=== PATIENT | female | born 1960 | race Caucasian/White ===

== ENCOUNTER 2017-11-08 06:58 | Outpatient (CLI) | payer OTHER | END 2017-11-08 06:59 | disposition home or self-care (01) | LOC: BICMRI 06:58 | PROVIDERS: ATTEND Orthopaedic Surgery | DX: M50.120 Mid-cervical disc disorder, unspecified level (principal); M47.892 Other spondylosis, cervical region; Z98.1 Arthrodesis status | CPT/HCPCS: 72141 ==

== ENCOUNTER 2018-12-06 05:31 | Day surgery (SDC) | payer OTHER ==
[2018-12-01 10:56] VITALS: BMI 30.4
--- NOTE | 2018-12-05 13:22 | HP ---
HISTORY OF PRESENT ILLNESS: Ms. Huitron is a pleasant 58-year-old woman, who is here today for evaluation of a large C7 disk herniation, which she had back in 2016. Ultimately, she had a new MRI performed by Radiology in October of 2017, which reveals resolution of that particular disk, but she has had persistent [id number]-[id number] bilateral neuroforaminal narrowing at C5-C6 and does have matching C6 pains and numbness, but most significantly in her hands. Some of this has been diagnosed as carpal tunnel syndrome, but she does have the active radicular symptoms in her arms as well. She does have history of previous C6-C7 ACDF, noted on her MRI which reveals stable. PAST MEDICAL HISTORY: Significant for hyperlipidemia, anxiety, depression, hypothyroidism, and COPD. CURRENT MEDICATIONS: 1. Symbicort. 2. Albuterol. 3. Trazodone. 4. Buspirone. 5. Levothyroxine. 6. Melatonin. 7. Sertraline. 8. Simvastatin. PAST SURGICAL HISTORY: ACDF, breast lumpectomy, hysterectomy, and cholecystectomy. ALLERGIES: MORPHINE AND DEMEROL. PHYSICAL EXAMINATION: The patient is alert and oriented x3. Cervical range of motion is somewhat limited in the rotational left and right movements. Her upper extremity motor exam is essentially normal with some minor sensory disturbance of the first through third digits of the bilateral hands. ASSESSMENT: Cervical radiculopathy. PLAN: Dr. Sullivan met with the patient, reviewed imaging, and advocated for revision C5-C6 anterior cervical discectomy and fusion. He explained to the patient the risks, benefits, and alternatives of the procedure. The patient expressed understanding and elected to go forward with surgery as discussed. I do believe that the patient is mentally competent and capable of making medical decisions for herself. We will move forward with surgery as planned. Job ID: [id number]
[2018-12-06] MEDS ORDERED: CEFAZOLIN 2 GM/50 ML BAG ONE ×2 (06:33→11:29)
[2018-12-06 06:43] LABS: #Eosinphils 0.3 thou/uL (0.0-0.7); #Monocytes 0.5 thou/uL (0.11-0.59); #Neutrophils 2.9 thou/uL (1.40-6.50); %Basophils 0.6 % (0.0-1.0); %Eosinophils 5.1 % (0.0-10.0); %Lymphocytes 35.7 % (21.0-51.0); %Monocytes 8.7 % (0.0-10.0); Hemoglobin 13.7 g/dL (12.0-16.0); Mean Corpuscular Hemoglobin 30.9 pg (27.0-31.0); Mean Corpuscular Volume 90.8 fL (78.0-98.0); Mean Platelet Volume 8.2 fL (7.4-10.4); Platelet Count 303 thou/uL (130-400); RBC Distribution Width 12.1 % (11.5-14.5); Red Blood Cell (RBC) Count 4.43 mill/uL (4.20-5.40); White Blood Cell (WBC) Count 5.7 thou/uL (4.8-10.8)
[2018-12-06] MEDS ORDERED: Midazolam HCl 2 mg/2 ml Vial ONE (06:54)
[2018-12-06] MEDS ORDERED: Fentanyl 100 MCG/2 ML VIAL ONE ×4 (06:54→09:19)
[2018-12-06] MEDS ORDERED: Lidocaine 1% w/Epinephrine 1:100K 30 ML VIAL ONE (08:55)
[2018-12-06] MEDS ORDERED: Cyclobenzaprine 10 MG TAB ONE (10:07)
[2018-12-06] MEDS ORDERED: Acetaminophen/Codeine 30-300mg Tablet ONE (10:39)
--- NOTE | 2018-12-06 11:03 | OP ---
DATE OF PROCEDURE: 12/06/2018 AS400 PROGRAMMER ANALYST: Christiano Cook PA-C INDICATION: Pain. DIAGNOSIS: Cervical radiculopathy. PROCEDURES PERFORMED: Reoperation removal of anterior instrumentation at C6-C7 and anterior cervical diskectomy and fusion at the adjacent C5-C6. ANESTHESIA: General. DESCRIPTION OF PROCEDURE: The patient was brought into the operating room, placed under general anesthesia. She was placed on table in supine position. A transverse incision was planned over the lateral aspect of the neck on the right. After prepping and draping and after a preoperative pause, the incision was created. The prevertebral exposure was performed by Dr. Andrea Drew, which will be dictated in a separate note. After gaining access to the prevertebral space, the patient's prior plate was identified and removed in total. We then redirected our attention to the level above at C5-C6, where an annulotomy was performed and all disk material including the anterior and posterior osteophytes were removed. After complete decompression, a 6 mm lordotic PEEK cage packed with allograft and autograft material were placed in the interbody space. The plate was then fashioned to the front of spine and secured with a total of 4 fixed screws. Midline lateral structures were then inspected and found to be free from significant trauma. The wound was irrigated. Hemostasis was maintained throughout. The wound was then closed in anatomic layers and a pressure dressing was applied. There were no known procedural complications. Job ID: [id number]
[2018-12-06] MEDS ORDERED: PROPOFOL 200 MG/20 ML VIAL ONE (15:32)
[2018-12-06] MEDS ORDERED: Ondansetron PF 4 MG/2 ML Vial ONE (15:32)
[2018-12-06] MEDS ORDERED: Rocuronium Bromide 10 MG/ML (10ML VIAL) ONE (15:32)
[2018-12-06] MEDS ORDERED: Glycopyrrolate 0.2 MG/ML 5 ML SYRINGE ONE (15:32)
[2018-12-06] MEDS ORDERED: Dexamethasone 20 MG/5 ML VIAL ONE (15:32)
--- NOTE | 2018-12-07 11:19 | OP ---
DATE OF PROCEDURE: 12/06/2018 PREOPERATIVE DIAGNOSES: 1. Cervical myelopathy. 2. Anterior cervical disk fusion surgery. ESTIMATED BLOOD LOSS: Less than 5 mL. COMPLICATION: None. ANESTHESIA: GETA with laryngeal nerve monitor. PROCEDURE IN DETAIL: The patient was taken to the operating room and placed on table. General endotracheal anesthesia was obtained by the anesthesia staff. The laryngeal nerve monitor was placed and was noted to be between the vocal cords. The tube was secured in the midline of the upper lip. A shoulder roll was placed. The patient was prepped and draped for standard surgical procedure. Following this, a previous incision was outlined and was incised using a 15 blade through skin and subcutaneous tissue. Following this, subplatysmal flaps were elevated superiorly and inferiorly. The sternocleidomastoid muscle was identified medial to this. Dissection was carried down to the prevertebral layer. The great vessels and laryngeal structures were retracted medially and the sternocleidomastoid muscle was retracted laterally. This is where the previous approach had been performed. Proper exposure of the cervical disk plate was provided to the Neurosurgery team and the procedure was turned over to Dr. Glenroy Sullivan. The patient tolerated the procedure well. Job ID: [id number]
--- NOTE | 2018-12-08 20:47 | EKG ---
Test Reason : PREOP Blood Pressure : / mmHG Vent. Rate : 057 BPM Atrial Rate : 057 BPM P-R Int : 162 ms QRS Dur : 088 ms QT Int : 412 ms P-R-T Axes : 077 076 080 degrees QTc Int : 401 ms Sinus bradycardia Otherwise normal ECG No previous ECGs available Confirmed by Marycarmen THOMPSON ([id number]) on 12/08/2018 8:47:04 PM Referred By: EMBER Confirmed By:Marycarmen THOMPSON
== END 2018-12-06 12:00 | disposition home or self-care (01) ==
LOC: SDC 05:31
PROVIDERS: ATTEND Neurological Surgery
PROC: 0RT30ZZ Resection of Cervical Vertebral Disc, Open Approach (ICD-10-PCS; principal; 2018-12-06)
PROC: 0RG1070 Fusion of Cervical Vertebral Joint with Autologous Tissue Substitute, Anterior Approach, Anterior Column, Open Approach (ICD-10-PCS; principal; 2018-12-06)
DX: M54.12 Radiculopathy, cervical region (principal); G95.9 Disease of spinal cord, unspecified; F31.9 Bipolar disorder, unspecified; E78.5 Hyperlipidemia, unspecified; E03.9 Hypothyroidism, unspecified; J44.9 Chronic obstructive pulmonary disease, unspecified; F41.9 Anxiety disorder, unspecified; M48.061 Spinal stenosis, lumbar region without neurogenic claudication; Z79.51 Long term (current) use of inhaled steroids; Z79.899 Other long term (current) drug therapy; Z88.5 Allergy status to narcotic agent; Z98.1 Arthrodesis status; Z87.891 Personal history of nicotine dependence
CPT/HCPCS: 76000; 85025; 93005; 93010; 96374; C1713; C1776; J1100; J2001; J2250; J2405; J2704; J3010